=== PATIENT | male | born 1955 | race Caucasian/White ===

== ENCOUNTER 2019-03-28 20:40 | Emergency (ER) | payer OTHER ==
[~2019-03-28] VITALS: Ht 172.7 cm; Wt 89.0 kg
[2019-03-28] MEDS ORDERED: GLUCAGON,HUMAN RECOMBINANT 1 MG/ML VIAL. IV ONE (22:00)
[2019-03-28 22:15] VITALS: BP 143/71
--- NOTE | 2019-03-28 22:15 | PHYS DOC ---
Past Medical History Past Medical History: Arthritis, Diabetes-Type II, Hypertension Past Surgical History: Other Additional Past Surgical Histo: RIGHT KNEE BULLET FRAGMENTS REMOVED, LEFT SHOULDER SURGERY Alcohol Use: Rarely Adult General Chief Complaint Chief Complaint: SWALLOWED FORIEGN BODY HPI HPI 63-year-old male with underlying history of diabetes, hypertension, hyperlipidemia presents to the emergency department with complaints of sudden stuck in his throat. Patient described a pressure sensation, shortness of breath, states he was unable to pass spit at that time. Happened 1 hour prior to his arrival. She was spitting up some sputum, unable tolerate oral intake. Denies any headache, visual change, , pain. He did describe chest pressure sensation associated with food that was stuck. Attempting to swallow makes things worse. Nothing makes things better. Review of Systems Review of Systems Constitutional: Denies fever or chills [] HENT: Trouble swallowing Respiratory: shortness of breath [] Cardiovascular: No additional information not addressed in HPI [] GI: Denies abdominal pain, + nausea, vomiting, no bloody stools or diarrhea [] Musculoskeletal: Denies back pain or joint pain [] Neurologic: Denies headache, focal weakness or sensory changes [] All other systems were reviewed and found to be within normal limits, except as documented in this note. Current Medications Current Medications Current Medications Medications (Trade) Dose Ordered Sig/[facility] Start Time Stop Time Status Last Admin Dose Admin Glucagon (Glucagen) 1 mg 1X ONCE 03/28/19 22:00 03/28/19 22:01 DC 03/28/19 21:30 1 MG Allergies Allergies Allergies Coded Allergies Type Severity Reaction Last Updated Verified No Known Drug Allergies 03/28/19 No Physical Exam Physical Exam Constitutional: Well developed, well nourished, mild distress, non-toxic appearance. [] HENT: Normocephalic, atraumatic, bilateral external ears normal, oropharynx moist, no oral exudates, nose normal. [] Eyes: PERRLA, EOMI, conjunctiva normal, no discharge. [] Cardiovascular:Heart rate regular rhythm, no murmur [] Lungs & Thorax: Bilateral breath sounds clear to auscultation [] Abdomen: Bowel sounds normal, soft, no tenderness, no masses, no pulsatile masses. [] Skin: Warm, dry, no erythema, no rash. [] Extremities: No tenderness, no edema. [] Neurologic: Alert and oriented X 3, no focal deficits noted. [] Psychologic: Affect normal, judgement normal, mood normal. [] Current Patient Data Vital Signs Vital Signs Date Time Temp Pulse Resp B/P (MAP) Pulse Ox O2 Delivery O2 Flow Rate FiO2 03/28/19 20:50 98.6 90 20 146/74 (98) 97 Room Air 98.6 EKG EKG [] Radiology/Procedures Radiology/Procedures Review, KUB, chest x-ray revealed no evidence of acute process.[] Course & Med Decision Making Course & Med Decision Making Pertinent Labs and Imaging studies reviewed. (See chart for details) []63-year-old male with underlying history of diabetes, hypertension, hyperlipidemia presents to the emergency department with complaints of sudden stuck in his throat. Patient described a pressure sensation, shortness of breath, states he was unable to pass spit at that time. Happened 1 hour prior to his arrival. She was spitting up some sputum, unable tolerate oral intake. Denies any headache, visual change, , pain. He did describe chest pressure sensation associated with food that was stuck. Attempting to swallow makes things worse. Nothing makes things better. Patient received glucagon with improvement Imaging reviewed without acute process identified Patient improved, able to tolerate po intake without difficulty at this time Recommend dc home Return precautions provided Basilio Disclaimer Basilio Disclaimer This electronic medical record was generated, in whole or in part, using a voice recognition dictation system. Departure Departure Impression: Primary Impression: Bolus impaction of digestive tract Additional Impression: Hypertension Disposition: 01 HOME, SELF-CARE Condition: IMPROVED Referrals: NO PCP (PCP) Patient Instructions: Dysphagia Additional Instructions: Recommend follow up with PCP 3 - 5 days Return to the ER with worsening symptoms, intractable pain, fever, altered mental status Tylenol/Motrin as needed for pain Imaging reviewed without acute process Problem Qualifiers Additional Impression: Hypertension Hypertension type: essential hypertension Qualified Codes: I10 - Essential (primary) hypertension JAIRON ALTAMIRANO MD Mar 28, 2019 22:15
--- NOTE | 2019-03-28 22:29 | RAD ---
KUB History: Food bolus Technique: Supine view the abdomen. Comparison: None. Findings: No radiopaque foreign body. Minimal small bowel gas. Air and stool scattered imaged colon. Moderate colonic stool burden. Lower lumbar spondylosis. Impression: 1. Nonobstructed bowel gas pattern. Moderate colonic stool burden. Electronically signed by: Rosendo Nye DO (03/28/2019 10:26 PM) [id number]
--- NOTE | 2019-03-28 22:30 | RAD ---
CHEST AP ONLY History: Food bolus Comparison: None. Findings: No consolidation or pleural effusion. Normal heart size. No pneumothorax. No intrathoracic radiopaque foreign body. Punctate density projecting over the left lateral chest wall subcutaneous tissues. Impression: 1. No acute cardiopulmonary process. 2. Punctate density projecting over the left lateral chest wall subcutaneous tissues, may be external to the patient. Recommend correlation for foreign body. Electronically signed by: Rosendo Nye DO (03/28/2019 10:28 PM) [id number]
--- NOTE | 2019-03-29 12:07 | EKG ---
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
== END 2019-03-28 22:34 | disposition home or self-care (01) ==
LOC: ER 20:40
DX: K92.89 Other specified diseases of the digestive system (principal); I10 Essential (primary) hypertension; E11.9 Type 2 diabetes mellitus without complications; E78.5 Hyperlipidemia, unspecified; M19.90 Unspecified osteoarthritis, unspecified site
CPT/HCPCS: 71045; 74018; 93005; 96374; 99284; J1610